=== PATIENT | female | born 1960 | race Hispanic/Latino ===

== ENCOUNTER 2021-02-26 08:16 | Day surgery (SDC) | payer OTHER ==
[~2021-02-26] VITALS: Ht 165.1 cm; Wt 67.6 kg
[~2021-02-26 08:16] MED LIST: CHOL-34 PO; CYAN50009 PO; FURO40TA5 PO; LACT10SO32 PO; MULT-685 PO; OMEP20TA25 PO; SPIR25TA6 PO; SULF1TAB89 PO
[2021-02-26 10:28] VITALS: BP 105/65
[2021-02-26] MEDS ORDERED: 0.9%NACL 1000ML 1,000 ML IV ONE (10:55)
[2021-02-26 11:45] VITALS: BP 95/47
[2021-02-26 11:50] VITALS: BP 90/54
[2021-02-26 11:55] VITALS: BP 93/63
[2021-02-26 12:00] VITALS: BP 90/58
[2021-02-26 12:15] VITALS: BP 92/57
== END 2021-02-26 12:15 | disposition home or self-care (01) ==
LOC: ENDO 08:16 → DAH 08:16 → ENDO 12:15
PROVIDERS: ATTEND Internal Medicine Gastroenterology
DX: Z12.11 Encounter for screening for malignant neoplasm of colon (principal); K70.31 Alcoholic cirrhosis of liver with ascites; K63.5 Polyp of colon; K44.9 Diaphragmatic hernia without obstruction or gangrene; K29.70 Gastritis, unspecified, without bleeding; K64.1 Second degree hemorrhoids; I85.10 Secondary esophageal varices without bleeding; K62.89 Other specified diseases of anus and rectum; Z72.89 Other problems related to lifestyle; Z98.890 Other specified postprocedural states
CPT/HCPCS: 43239; 45380; A4215 ×2; A4221; A4222; A4223; A4606; A4620; A4663; J7030